=== PATIENT | male | born 1995 | race Caucasian/White ===

== ENCOUNTER 2020-05-24 10:38 | Emergency (ER) | payer OTHER ==
[~2020-05-24] VITALS: Ht 190.5 cm; Wt 90.7 kg
--- NOTE | 2020-05-24 10:52 | NUR ---
AMB TO BED 08
[2020-05-24 10:56] VITALS: BP 102/74
--- NOTE | 2020-05-24 11:00 | NUR ---
ALSO C/O SUBJECTIVE FEVER, CHILLS, BODY ACHES X TODAY. 7X NONBLOODY DIARRHEA TODAY. DENIES UNUSUAL FOODS OR VOMITING. DENIES COUGH OR DYSPNEA. ABD PAIN INTERMITTENT, DESCRIBED "CHURNING", 9/10 AT GREATEST INTENSITY. ABD IS ROUND, SOFT, AND TENDERNESS ON EPIGASTRIC REGION, ACTIVE BS. +DIARRHEA. VSS. A&O X4. STEADY GAIT. HX- DENIES NKA
[2020-05-24] MEDS ORDERED: NACL 0.9% 1,000 ML IV ONE (11:20)
[2020-05-24] MEDS ORDERED: ONDANSETRON 4 MG/2 ML VIAL IVP ONE (11:20)
[2020-05-24] MEDS ORDERED: KETOROLAC 30 MG/ML VIAL IVP ONE (11:20)
[2020-05-24] MEDS ORDERED: LORazepam 2 MG/ML VIAL IVP ONE (12:30)
[2020-05-24 12:54] LABS: BASOPHILS % (AUTO) 0.1 % (0.0-2.0); EOSINOPHILS # (AUTO) 0.1 K/uL (0-0.4); EOSINOPHILS % (AUTO) 0.4 % (0.0-4.0); HEMATOCRIT 47.1 % (36-52); HEMOGLOBIN 15.5 g/dL (12.0-18.0); LYMPHOCYTES # (AUTO) 0.9 K/uL (2.0-11.5); LYMPHOCYTES % (AUTO) 5.8 % (20.5-51.1); MEAN CORPUSCULAR HEMOGLOBIN 29 pg (27-31); MEAN CORPUSCULAR HGB CONC 33 g/dL (33-37); MEAN CORPUSCULAR VOLUME 87.5 fL (80-94); MONOCYTES % (AUTO) 6.6 % (1.7-9.3); NEUTROPHILS # (AUTO) 13.1 K/uL (1.8-7.7); NEUTROPHILS % (AUTO) 87.1 % (42.2-75.2); PLATELET COUNT (AUTO) 155 K/uL (140-450); RED BLOOD CELL COUNT(AUTO) 5.38 MIL/uL (4.20-6.10); RED CELL DISTRIBUTION WIDTH 13.2 % (11.6-13.7)
[2020-05-24 13:02] LABS: ALBUMIN 4.3 g/dL (3.4-5.0); CARBON DIOXIDE 22.3 mmol/L (21-32); POTASSIUM 4.3 mmol/L (3.5-5.1); TOTAL BILIRUBIN 0.6 mg/dL (0.0-1.0)
[2020-05-24 13:44] VITALS: BP 102/74
--- NOTE | 2020-05-24 13:45 | NUR ---
Patient discharged with v/s stable. Written and verbal after care instructions given and explained. Patient alert, oriented and verbalized understanding of instructions. Ambulatory with steady gait. All questions addressed prior to discharge. ID band removed. Patient advised to follow up with PMD. Rx of IMMODIUM AD & ZOFRAN given. Patient educated on indication of medication including possible reaction and side effects. Opportunity to ask questions provided and answered.
== END 2020-05-24 13:45 | disposition home or self-care (01) ==
LOC: MED 10:38
DX: A08.4 Viral intestinal infection, unspecified (principal)
CPT/HCPCS: 36415; 74022; 80053; 83690; 85025; 96374; 96375; 99284; J1885; J2060; J2405; 96361; J7030